=== PATIENT | male | born 1965 | race Caucasian/White ===

== ENCOUNTER 2017-11-10 05:16 | Emergency (ER) | payer SELFPAY ==
[2017-11-10 05:24] VITALS: BP 131/88; PULSE 118; TEMP 98.7; BMI 21.2
[2017-11-10] MEDS ORDERED: LIDO 2%/EPI 1:200000 PRESRVFRE (20 ML SDVIAL) ONE (05:36)
[2017-11-10] MEDS ORDERED: DIPHTH,PERTUSS(ACELL),TET 0.5 ML DISP.SYRIN IM ONE (05:54)
[2017-11-10] MEDS ORDERED: AMOX TR/POT CLAV 875MG/125MG TABLETS (FP) PO ONE (05:54)
[2017-11-10] MEDS ORDERED: AMOX TR/POT CLAV 875MG/125MG TABLETS (FP) ONE (05:55)
--- NOTE | 2017-11-10 05:58 | PDOC ---
History of Present Illness - General Chief Complaint: Bite Stated Complaint: DOG BITE TO NOSE Time Seen by Provider: 11/10/17 05:34 - History of Present Illness Initial Comments: 11/10/17 06:05 This 52-year-old man presents accompanied by friend with history of dog bite to the right nostril sustained just prior to presentation. Patient was petting a dog owned by friends. The patient, who had been drinking alcohol this evening, ignored multiple warnings by his friends that he was too close to the dog and the dog had begun growling. Dog subsequently bit right side of the nose. No other injury sustained. Dog is otherwise up to date on his immunizations and apparently has not previously bitten. The patient was otherwise healthy and has no history of poor wound healing/easy bruisability or resistant organism colonization/infection. Patient is unsure previous tetanus immunization. Past History - Past Medical History Allergies/Adverse Reactions: Allergies Allergy/AdvReac Type Severity Reaction Status Date / Time No Known Allergies Allergy Verified 11/10/17 05:18 Home Medications: Ambulatory Orders Amoxicillin/Potassium Clav [Augmentin 875-125 Tablet] 1 each PO BID #10 tablet 11/10/17 COPD: No Other medical history: DENIES - Immunization History Immunization Up to Date: No - Suicide/Smoking/Psychosocial Hx Smoking History: Current every day smoker Have you smoked in the past 12 months: Yes Number of Cigarettes Smoked Daily: 20 Information on smoking cessation initiated: Yes 'Breaking Loose' booklet given: 11/10/17 Hx Alcohol Use: Yes (OCCAS.) Drug/Substance Use Hx: No Substance Use Type: None Review of Systems - Review of Systems Able to Perform ROS?: Yes Comments:: 12 point review of systems is negative except for what is noted in the history of present illness *Physical Exam - Vital Signs Last Vital Signs Temp Pulse Resp BP Pulse Ox 98.7 F 118 H 20 131/88 100 11/10/17 05:18 11/10/17 05:18 11/10/17 05:18 11/10/17 05:18 11/10/17 05:18 - Physical Exam Comments: GENERAL: Adult male, alert and oriented, alcohol on breath; no acute distress HEAD: Normal with no signs of trauma. EYES: PERRLA, EOMI, sclera anicteric, conjunctiva clear. ENT: 1.5 cm curvilinear full-thickness laceration of the mid right nasal ala; laceration is not through and through; no cartilage damage evident lEars normal, nares patent, oropharynx clear without exudates. Dry mucous membranes. NECK: Normal range of motion, supple without lymphadenopathy, JVD, or masses. LUNGS: Breath sounds equal, clear to auscultation bilaterally. No wheezes, and no crackles. HEART:Regular rate and rhythm, normal S1 and S2 without murmur, rub or gallop. ABDOMEN:.normal bowel sounds No guarding,tenderness or rebound.No masses No distention. EXTREMITIES: Normal range of motion, no edema. No clubbing or cyanosis. No erythema, or tenderness. NEUROLOGICAL: Cranial nerves II through XII grossly intact. Normal speech. No focal neurological deficits. MUSCULOSKELETAL: Back non-tender to palpation, no CVA tenderness SKIN: Warm, Dry, normal turgor, Procedures - Laceration/Wound Repair Right Nose Wound Length: to 2.5 cm Wound Explored: clean Irrigated w/ Saline: Yes Betadine Prep: No (Hibiclens/ethanol) Anesthesia: 2% Lidocaine w/ Epi Amount of Anesthetic (ccs): 1 Wound Repaired With: Sutures Suture Size/Type: 6:0 Number of Sutures: 3 Sterile Dressing Applied: No Splint Applied: No Progress: Area around the right nostril prepped using Hibiclens/ethanol and sterilely draped. 1 mL of 2% lidocaine with epinephrine infiltrated into the wound for local anesthesia. Wound irrigated with 20 mL of sterile normal saline. Wound explored: No evidence of cartilage damage. Laceration is not through and through. Edges of wound closely apposed and wound repaired using 3 interrupted sutures of 6-0 nylon. Bacitracin applied to wound after closure. Patient tolerated procedure well Progress Note - Progress Note Progress Note: Repair of wound as noted above. Patient treated with Augmentin 875/125, one tablet given here and five-day course of Augmentin 875/125 twice a day transmitted to his pharmacy. Boostrix 0.5 mL given. Patient instructed to keep his head elevated overnight; wound should be kept dry as possible for 48 hours with bacitracin applied twice a day until removal of sutures. Augmentin to be taken for 5 days as noted above. He should report to his doctor or return here if area becomes swollen/red/more painful. Otherwise, he should have his sutures removed on November 15 *DC/Admit/Observation/Transfer Diagnosis at time of Disposition: Dog bite of ala nasi Qualifiers: Encounter type: initial encounter Qualified Code(s): S01.25XA - Open bite of nose, initial encounter - Discharge Dispostion Disposition: HOME Condition at time of disposition: Stable - Prescriptions Prescriptions: Amoxicillin/Potassium Clav [Augmentin 875-125 Tablet] 1 each PO BID #10 tablet - Referrals - Patient Instructions Printed Discharge Instructions: DI for Animal Bites Additional Instructions: Keep head elevated tonight Bacitracin ointment to wound twice a day until sutures removed Augmentin 875/125 twice a day for 5 days (take with food) Return or see your doctor if area becomes red/swollen/painful Have sutures removed in 5 days(11/15) - Post Discharge Activity
== END 2017-11-10 06:03 | disposition home or self-care (01) ==
LOC: FER 05:16
PROC: 0HQ1XZZ Repair Face Skin, External Approach (ICD-10-PCS; principal; 2017-11-10)
PROC: 3E0234Z Introduction of Serum, Toxoid and Vaccine into Muscle, Percutaneous Approach (ICD-10-PCS; 2017-11-10)
DX: S01.25XA Open bite of nose, initial encounter (principal); F17.210 Nicotine dependence, cigarettes, uncomplicated; W54.0XXA Bitten by dog, initial encounter; Y93.89 Activity, other specified; Y92.9 Unspecified place or not applicable
CPT/HCPCS: 90715; 99281-25

== ENCOUNTER 2017-11-15 15:50 | Emergency (ER) | payer OTHER ==
--- NOTE | 2017-11-15 16:34 | PDOC ---
Suture Removal/Wound Check HPI - History of Present Illness History Source: Yes: Patient - Onset of Previous Treatment Comment:: 11/15/17 16:37 The patient is a 52 year old male, with no significant past medical history, who presents to the emergency department for suture removal. Patient was bitten on the right nostril by a friends dog. Patient states he was compliant with taking his antibiotics and applying the bacitracin. The affected area seems to be clean and well healed. Patient is not complaining of any current symptoms. <Collette Verduzco - Last Filed: 11/15/17 16:37> - Onset of Previous Treatment Comment:: 11/15/17 16:30 Sutures times daily removed from the right nares. Wound is well-healed, however , the medial border is raised somewhat in relation to the lateral border. No sign of infection, erythema, swelling, or drainage Steri-Strips applied. Patient told that wounds frequently flatten out with time , but if there is persistent deformity of the nares that is bothersome, he should consult a plastic surgeon for further recommendations. Fully ambulatory, in no distress upon discharge to follow-up as suggested. <Christopher Herrmann - Last Filed: 11/15/17 17:17> - History of Present Illness Chief Complaint: Suture/Staple Removal(Here) Stated Complaint: SUTURE REMOVAL FROM NOSE Time Seen by Provider: 11/15/17 16:13 Past History <Collette Verduzco - Last Filed: 11/15/17 16:37> - Past Medical History COPD: No - Immunization History TDAP Vaccination: Yes (11/10/17) Immunization Up to Date: No - Suicide/Smoking/Psychosocial Hx Smoking History: Current every day smoker Have you smoked in the past 12 months: Yes Number of Cigarettes Smoked Daily: 20 Information on smoking cessation initiated: Yes 'Breaking Loose' booklet given: 11/10/17 Hx Alcohol Use: Yes (OCCAS.) Drug/Substance Use Hx: No Substance Use Type: None <Christopher Herrmann - Last Filed: 11/15/17 17:17> - Past Medical History Allergies/Adverse Reactions: Allergies Allergy/AdvReac Type Severity Reaction Status Date / Time No Known Allergies Allergy Verified 11/15/17 16:07 Home Medications: Ambulatory Orders Amoxicillin/Potassium Clav [Augmentin 875-125 Tablet] 1 each PO BID #10 tablet 11/10/17 *Review of Systems - Review of Systems Comments:: 11/15/17 16:38 CONSTITUTIONAL: Absent: fever, no chills, no fatigue EYES: Absent: visual changes ENT: Absent: ear pain, no sore throat CARDIOVASCULAR: Absent: chest pain, no palpitations RESPIRATORY: Absent: cough, no SOB GI: Absent: abdominal pain, no nausea, no vomiting, no constipation, no diarrhea GENITOURINARY: Absent: dysuria, no frequency, no hematuria MUSCULOSKELETAL: Absent: back pain, no arthralgia, no myalgia SKIN: Absent: rash Present: 3 stitches to right nostril. <Collette Verduzco - Last Filed: 11/15/17 16:37> *DC/Admit/Observation/Transfer - Attestations Scribe Attestion: 11/15/17 16:38 Documentation prepared by Collette Verduzco, acting as medical records supervisor for Christopher Russo MD. <Collette Verduzco - Last Filed: 11/15/17 16:37> - Discharge Dispostion Admit: No <Christopher Herrmann - Last Filed: 11/15/17 17:17> Diagnosis at time of Disposition: Encounter for removal of sutures - Discharge Dispostion Disposition: HOME Condition at time of disposition: Improved - Referrals Referrals: Harley Elise [Non Staff, Medical] - - Patient Instructions Printed Discharge Instructions: DI for Suture Removal Additional Instructions: There is an irregularity of the wound edge that frequently occurs with healing. Usually this flattens out with time. If elevation of the wound edge persists, appearance can likely be improved by plastic surgeon.
[2017-11-15 16:36] VITALS: BP 125/86; PULSE 100; TEMP 98; BMI 21.1
== END 2017-11-15 16:38 | disposition home or self-care (01) ==
LOC: FER 15:50
DX: Z48.02 Encounter for removal of sutures (principal)
CPT/HCPCS: 99281-25